=== PATIENT | female | born 1995 | race Caucasian/White ===

== ENCOUNTER → 2019-08-06 15:35 | Outpatient (BNVA) | payer SELFPAY | PROVIDERS: Visit Provider Nurse Practitioner | DX: R05 Cough (principal) | CPT/HCPCS: 87400 ==

== ENCOUNTER → 2021-03-20 11:40 | Outpatient (BNVA) | payer OTHER, SELFPAY | PROVIDERS: Visit Provider Family Medicine | DX: Z20.822 Contact with and (suspected) exposure to COVID-19 (principal) | CPT/HCPCS: 87635 ==

== ENCOUNTER → 2022-02-23 16:26 | Outpatient (BNVA) | payer SELFPAY | PROVIDERS: Visit Provider Registered Nurse Neonatal Intensive Care | DX: R05.9 Cough, unspecified (principal) | CPT/HCPCS: 87400 ==

== ENCOUNTER 2023-01-29 07:41 | Emergency (ER) | payer MEDICAID, SELFPAY ==
--- NOTE | 2023-01-29 07:46 | XR_ITS ---
WS: [id number] Left ankle, 3 views, 01/29/2023 Clinical Data: trauma Comparison: None. Findings: No fractures or dislocations are seen. The ankle mortise is normal. The talus and calcaneus are unrem arkable. There is soft tissue swelling over the lateral malleolus.. There is a plantar spur and an Achilles spur. Impression: 1. Negative for fracture or dislocation. 2. Soft tissue swelling over lateral malleolus.
[2023-01-29 07:48] VITALS: BP 145/108; PULSE 75; RESP 18; TEMP 37.2; O2SAT 97; BMI 29.0
--- NOTE | 2023-01-29 07:58 | W.ED.FALL ---
HPI - Fall General: Chief Complaint: Fall Stated Complaint: fall, left ankle pain Time Seen by Provider: 01/29/23 07:45 Source: patient Mode of arrival: ambulatory History of Present Illness: 27-year-old female had inversion left ankle injury while stepping down some stairs while leaving a home she was working at. She works as a caregiver expert medical writer. complaint: fall Onset (ago): day(s) Fall from: standing Place fall occurred: work Loss of consciousness: None Prolonged down time: no Context: tripped/slipped Location of injury - extremities: Left: ankle Severity: moderate Quality: sharp Associated symptoms-after fall: Denies neck pain, numbness, short of breath or weakness Review of Systems Const: Denies: fever(s) or chills Musc: Reports: joint pain; Denies: neck pain or back pain PFSH ED PFSH: Social History (Updated 07/07/19 @ 17:25 by Sarah Marie LPN) Smoking and tobacco/nicotine status: current every day tobacco/nicotine user Physical Exam Narrative: EXAM NARRATIVE: 27-year-old female complaining of left ankle pain mild swelling the lateral malleolus. Dorsalis pedis posterior tibialis pulses normal sensation lower extremity normal dorsal plantarflexion 5 of 5 no obvious deformity bruising or lacerations. Course Vital Signs: Vital signs: Vital Signs Temperature 98.9 F 01/29/23 07:48 Pulse Rate 75 01/29/23 07:48 Respiratory Rate 18 01/29/23 07:48 Blood Pressure 145/108 01/29/23 07:48 Pulse Oximetry 97 01/29/23 07:48 MDM - Fall Medical Decision Making Ankle sprain weightbearing tolerable observe patient walking she has a mild favoring of the left ankle but is able to bear weight no acute fractures on x-ray. Can wrap ankle as needed for comfort diclofenac as needed follow-up with primary care if not improving All radiology interpretation(s) finalized by discharge Discharge Plan Discharge Patient Disposition: Home Clinical Impression: Left ankle sprain Condition: Stable Prescriptions: New diclofenac sodium 75 mg tablet,delayed release (DR/EC) 75 mg PO Q12H PRN (Reason: pain) Qty: 20 0RF Discharge Orders: Discharge ED (Routine); Ordered 01/29/23 Ordered By: Antonio Davis Discharge Diet: Usual diet Discharge Activity: Increase activity as tolerated Patient Instructions: Ankle Sprain (ED), Opioid Safety, Pain Management Coding Level of Care Code ED Printing Plate Maker for Liz Love
== END 2023-01-29 08:17 | disposition home or self-care (01) ==
PROVIDERS: Emergency Provider Family Medicine
DX: S93.402A Sprain of unspecified ligament of left ankle, initial encounter (principal); F17.210 Nicotine dependence, cigarettes, uncomplicated; X50.1XXA Overexertion from prolonged static or awkward postures, initial encounter
CPT/HCPCS: 73610; 99283

== ENCOUNTER 2023-02-02 09:31 | Emergency (ER) | payer MEDICAID, SELFPAY ==
[2023-02-02 09:32] VITALS: BP 169/116; PULSE 97; RESP 17; TEMP 36.9; O2SAT 96; BMI 29.0
--- NOTE | 2023-02-02 09:33 | W.ED.LOWEXIN ---
HPI - Extremity Injury (Lower) General: Chief Complaint: Extremity Injury, Lower Stated Complaint: left ankle injury Time Seen by Provider: 02/02/23 09:32 Source: patient Mode of arrival: ambulatory Limitations: no limitations History of Present Illness: Patient is a nice 27-year-old female presents to ED today with a complaint of left ankle pain/injury. Patient states she was seen here approximately 4 days ago after she twisted the ankle. She had negative x-ray films performed. She states she was offered crutches but declined. She has continued to be weightbearing on the extremity and states she has been working long 16-hour days and is also in the process of moving. She states yesterday she accidentally rolled her ankle yet again and feels like the pain and swelling has worsened. She is ambulatory here in the ER with a significant limp. complaint: ankle injury Onset (ago): day(s) Injury: Left: ankle Type of Injury: inversion Place: home Severity: moderate Relieving factors: immobilization Exacerbating factors: weight bearing, movement and palpation Context: other (twisted) Associated symptoms: Reports no associated symptoms Other symptoms: none Review of Systems Musc: Reports: joint pain (L ankle) and joint swelling (L ankle); Denies: neck pain, back pain, extremity pain, extremity swelling, joint redness or joint warmth Neuro: Reports: difficulty walking; Denies: numbness in extremities or sensory changes PFSH ED PFSH: Social History Smoking and tobacco/nicotine status: current every day tobacco/nicotine user Physical Exam Const: COMMON NORMALS: no acute distress, patient oriented x3, no limitations, alert and well nourished Extremity: COMMON NORMALS: capillary refill normal and no calf tenderness GENERAL: Yes normal exam except as noted LEFT LOWER EXTREMITY: Yes ankle joint (edema/ecchymosis and tenderness to L lateral ankle) Left ankle: Yes neurovascular exam (normal) and Yes foot & digits (no tenderness involving foot; some minor spreading of edema/ecchymosis) Neuro: COMMON NORMALS: patient oriented x3, moves all extremities, no focal motor deficits and no sensory deficits noted SENSORIUM/ORIENTATION: Yes alert Course Vital Signs: Vital signs: Vital Signs Temperature 98.5 F 02/02/23 09:32 Pulse Rate 97 02/02/23 09:32 Respiratory Rate 17 02/02/23 09:32 Blood Pressure 169/116 02/02/23 09:32 Pulse Oximetry 96 02/02/23 09:32 Oxygen Delivery Me thod Room Air 02/02/23 09:32 MDM - Extremity Injury (Lower) Medical Decision Making XR negative. Will CHRISTINA wrap/crutches. Instructions for weight bearing as tolerated. RICE therapy. NSAIDS. Follow up with PCP in 1-2 weeks if symptoms do not seem to be improving. Differential Diagnosis Likely ankle sprain and strain Medical Records I reviewed the patient's medical records. XR interpretation done by ED provider, pending radiology final review Discharge Plan Discharge Patient Disposition: Home Clinical Impression: Left ankle sprain Qualifiers: Encounter type: initial encounter Involved ligament of ankle: unspecified ligament Qualified Code(s): S93.402A - Sprain of unspecified ligament of left ankle, initial encounter Condition: Stable Prescriptions: No Action diclofenac sodium 75 mg tablet,delayed release (DR/EC) 75 mg PO Q12H PRN (Reason: pain) Qty: 20 0RF Discharge Orders: Discharge ED (Routine); Ordered 02/02/23 Ordered By: Isabel Beltre Patient Instructions: Ankle Sprain (DC), RICE Therapy Coding Level of Care Code ED Motor And Generator Assembler for Liz Love
--- NOTE | 2023-02-02 09:40 | XR_ITS ---
WS: [id number] Exam: XR ankle LT min 3V* [id number] Date/Time of Exam: 02/02/2023 9:41 AM Reason For Exam: injury/swelling/pain Comparison 01/29/2023. No fracture or dislocation. The ankle mortise is equidistant. Mild lateral soft tissue swelling. IMPRESSION: 1. Mild lateral soft tissue swelling-no acute fracture.
[2023-02-02 10:08] VITALS: BP 161/111; PULSE 94; O2SAT 95
== END 2023-02-02 10:11 | disposition home or self-care (01) ==
PROVIDERS: Emergency Provider Physician Assistant
DX: S93.402A Sprain of unspecified ligament of left ankle, initial encounter (principal); F17.210 Nicotine dependence, cigarettes, uncomplicated; X50.1XXA Overexertion from prolonged static or awkward postures, initial encounter
CPT/HCPCS: 73610; 99283; E0114

== ENCOUNTER 2023-03-09 13:33 | Emergency (ER) | payer MEDICAID, SELFPAY ==
[2023-03-09 13:56] VITALS: BP 145/95; PULSE 76; RESP 18; TEMP 36.6; O2SAT 99; BMI 29.0
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
[2023-03-09] MEDS: TRAMadol 50 mg Tablet PO (14:56)
== END 2023-03-09 15:46 | disposition home or self-care (01) ==
PROVIDERS: Emergency Provider Physician Assistant
DX: R11.2 Nausea with vomiting, unspecified (principal); Z72.0 Tobacco use
CPT/HCPCS: 70450; 99284

== ENCOUNTER 2023-03-15 09:19 | Emergency (ER) | payer MEDICAID, SELFPAY ==
[2023-03-15 09:32] VITALS: BP 140/97; PULSE 99; RESP 18; TEMP 36.9; O2SAT 99; BMI 27.3
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
[2023-03-15 09:55] VITALS: BP 144/99; PULSE 94; O2SAT 96
[2023-03-15] MEDS: promethazine 25 mg/mL SDV 1 mL IM (10:01)
[2023-03-15 10:06] VITALS: RESP 18; O2SAT 97
[2023-03-15] MEDS: morphine 4 mg/mL SDV 1 mL IM (10:06)
[2023-03-15 10:52] VITALS: BP 140/104; PULSE 106; O2SAT 99
== END 2023-03-15 10:55 | disposition home or self-care (01) ==
PROVIDERS: Emergency Provider Family Medicine
DX: S02.609A Fracture of mandible, unspecified, initial encounter for closed fracture (principal); V89.2XXA Person injured in unspecified motor-vehicle accident, traffic, initial encounter; Z72.0 Tobacco use
CPT/HCPCS: 96372; 99284; J2270; J2550